=== PATIENT | female | born 1945 | race Caucasian/White ===

== ENCOUNTER → 2016-04-03 | Outpatient (CLI) | payer MEDICARE ==
--- NOTE | 2016-04-04 06:51 | WWHP ---
DATE OF SERVICE: 04/03/2016 CHIEF COMPLAINT: The patient is here for her routine gynecologic exam and mammogram. HPI: This is a 70-year-old, G2, P2 with an LMP of 1994. The patient states it has been about 15 years since her last pelvic exam. She states she was hospitalized about 6 weeks ago for a bad UTI. She has also been experiencing intermittent low abdominal pain on the right side for about 4 months. The pain tends to originate near the umbilicus and seems to radiate to the right lower quadrant. She describes it as a crampy type pain and does seem to notice something every day, but it is intermittent. Most of the day she is not having much pain. She rates the pain at the 1 to 2 out of 10 at this time. She states that it was up to 10 out of 10 when she had a bad UTI. Occasionally, it will get up to 7 out of 10. She denies vaginal discharge, but has had some vulvar pruritus for several weeks. She denies any postmenopausal bleeding. Her primary care physician, Dr. Salamanca, has treated her with a cream for the vulvar pruritus. She believes the cream name starts with a C, but is uncertain of the actual name. PAST MEDICAL HISTORY: Elevated cholesterol, chronic hypertension, and hypothyroidism. Dr. Salamanca is her primary care physician. MEDICATIONS: 1. Atorvastatin 10 mg daily. 2. Amlodipine with benazepril 5/10 one daily. 3. Levothyroxine 125 mcg daily. Allergies to SULFATE medications, which caused nausea and vomiting. PAST SURGICAL HISTORY: Abdominal hernia repair on the right side in 2008, appendectomy at age 18, tubal ligation at age 28, tonsillectomy at age 18, colonoscopy approximately 2006, back surgery in her 30s, elbow and ankle surgeries in the past. PAST OB HISTORY: Vaginal deliveries x2. 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 SOCIAL HISTORY: She denies tobacco and drug use and has 0 to 2 alcoholic drinks per year. She is and has not been sexually active or seeing anybody for many years. 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 FAMILY HISTORY: Mother had CHF and daughter has diabetes. REVIEW OF SYSTEMS: She denies respiratory, cardiac, or GI problems. She denies maltreatment or falling. : She has had some urinary frequency after her hospitalization for UTI. She has had urine tests since then which were apparently negative for urinary tract infection. PHYSICAL EXAM: Blood pressure 151/73. Height 5 feet 6 inches. Weight 259 pounds. Temperature 96.6, pulse 71. This a well-developed, heavyset white female who is alert and oriented x3 in no acute distress. HEENT is within normal limits. NECK: Supple without mass or thyromegaly. CHEST AND LUNGS: Clear to auscultation. HEART: Regular rate and rhythm. Breasts are without mass or discharge. There is slight erythema at the periphery of the areola on both sides. The patient states she has noticed a slight irritating rash in this vicinity and she has used Gold Allan cream which seems to have helped. There is no excoriation. Axillary exam is negative for adenopathy. BACK: Negative for CVA tenderness. ABDOMEN: Mildly obese, soft and there is mild right lower quadrant tenderness without rebound. There is no other tenderness noted. PELVIC EXAM: External genitalia reveals generalized vulvar, perineal and some perianal pallor consistent with lichen sclerosus. There are no focal lesions and this is non-excoriated. Cervix and vagina reveal mild to moderate atrophy without lesions. There is no unusual discharge. There is no cervical motion tenderness. The uterus is midposition, nongravid size and nontender. There are no palpable adnexal masses; however, there is mild right lower quadrant abdominal and pelvic tenderness with deep bimanual palpation. Bimanual examination limited to the pelvic area is minimally tender. Rectovaginal exam is negative for mass or tenderness and is negative for occult blood. EXTREMITIES: Nontender. IMPRESSION: 1. A 70-year-old menopausal female with four-month history of right lower quadrant pain. This is intermittent and at this time I feel it is most likely non-gynecologic because the tenderness seems to be higher than the uterine and adnexal areas. Differential diagnosis will include ovarian mass, which is not palpable, gastrointestinal pain, pelvic and abdominal adhesions or possible recurrence of hernia symptoms since this was where her abdominal hernia repair was. 2. 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 PLAN: 1. Pap smear was performed. 2. Self breast examination was discussed. 3. Mammogram will be done today. 4. The patient will be scheduled for a pelvic ultrasound to further evaluate her right lower quadrant pain to rule out gynecologic problems. 5. The patient will let me know the name of her cream that she has been using on the vulva. She believes it may be clobetasol but is not positive of this. We will consider using clobetasol if she is using something different. She was advised to not over wash the area and try to avoid scratching and rubbing the area. We will also consider a vulvar biopsy if her symptoms are not improving. 6. The patient will use [id number] Cortaid 10 to the areas around the nipples that have been irritated. She will also let me know if this is not improving. 7. She will return in one year and p.r.n.
--- NOTE | 2016-04-04 13:55 | MM ---
Reason for exam: screening (asymptomatic). History: Patient is postmenopausal. Physical Findings: A clinical breast exam by your physician is recommended on an annual basis and results should be correlated with mammographic findings. MG Screening Mammo w CAD Bilateral CC and MLO view(s) were taken. No prior studies available for comparison. There are scattered fibroglandular densities. There is no discrete abnormality. Global asymmetry upper outer quadrant right breast. ASSESSMENT: Negative, BI-RAD 1 RECOMMENDATION: Routine screening mammogram of both breasts in 1 year.
--- NOTE | 2016-04-10 11:46 | WWPLE ---
April 10, 2016 PAMELA SALAMANCA MD RE: Katalina Carvalho Dear Dr. Salamanca: I had the pleasure of seeing your patient Katalina Carvalho in the office on 04/03/16. As you know she is a 70-year-old who presented to me for her routine gynecologic exam. She was experiencing some right lower quadrant abdominal pain for about 4 months. It had gotten much worse at the time of a bad urinary tract infection, which she was hospitalized for several weeks ago. She has also been experiencing chronic vulvar pruritus and has been using a cream for this. This cream was clotrimazole with betamethasone. On examination, I do feel that her pain seems to be superior to her gynecologic organs. I also believes she has lichen sclerosus of the vulva. Pap smear was negative and her mammogram was benign. The patient will be doing a pelvic ultrasound in the near future to rule out gynecologic problems. I have also called in a prescription for Temovate cream, which she will use on the vulva. I will also be seeing her in about one month for re-evaluation of the vulvar irritation. Thank you for allowing me to participate in the care of your patient. Please do not hesitate to call if you have any questions. Sincerely, ELIZABETH GUPTA MD [facility]
== END | disposition home or self-care (01) ==
LOC: WWCWWP 09:02
PROVIDERS: ATTEND Obstetrics & Gynecology
DX: Z12.31 Encounter for screening mammogram for malignant neoplasm of breast (principal)

== ENCOUNTER → 2016-04-15 | Outpatient (CLI) | payer MEDICARE ==
--- NOTE | 2016-04-15 15:19 | US ---
EXAMINATION TYPE: US pelvis complete transvag DATE OF EXAM: 04/15/2016 9:50 AM COMPARISON: NONE CLINICAL History: pelvic pain TECHNIQUE: TA and TV supplemental ,TV imaging added to supplement TA exam yes Date of LMP: years ago pt is age 70 EXAM MEASUREMENTS: Uterus: 5.2 x 2.6 x 3.3 cm Endometrial Stripe: 0.4 cm Right Ovary: not seen Left Ovary: not seen FINDINGS: TECHNOLOGIST IMPRESSION: 1. Uterus: nabothian cyst 0.6 x 0.4 x 0.2 cm, small posterior fibroid 0.8 x 0.5 x 1.0 cm 2. Endometrium: thick for post menopausal upper area heterogenous 2.0 x 0.8 cm. Endometrial echotextu re is abnormal. 3. Right Ovary: not seen 4. Left Ovary: not seen 5. Bilateral Adnexa: wnl 6. Posterior cul-de-sac: wnl IMPRESSION: 1. Borderline Thickened endometrium. 2. Uterine fibroid
== END | disposition home or self-care (01) ==
LOC: RADUSWWP 09:25
PROVIDERS: ATTEND Obstetrics & Gynecology
DX: D25.9 Leiomyoma of uterus, unspecified (principal); R93.8 Abnormal findings on diagnostic imaging of other specified body structures
CPT/HCPCS: 76830; 76856

== ENCOUNTER → 2016-06-25 | Outpatient (CLI) | payer MEDICARE ==
--- NOTE | 2016-06-25 19:42 | WWPN ---
DATE OF DICTATION: 06/25/2016 CHIEF COMPLAINT: The patient is here for followup on her vulvar irritation and treatment. HISTORY OF PRESENT ILLNESS: This is a 71-year-old G2, P2 with an LMP of 1994. The patient was seen on 04/03/16 and was experiencing chronic vulvar irritation. The findings were consistent with probable lichen sclerosus of the vulva. She was prescribed Trimovate cream, which she used b.i.d. with significant improvement. Now she has been using the cream p.r.n. and sometimes uses it up to 3 times per week. The patient also had a pelvic ultrasound which showed an irregularity and an ill-defined area in the endometrium. I have recommended hysteroscopy with D&C, which she was declining and continues to decline at this time. She denies any postmenopausal bleeding. PHYSICAL EXAM: Blood pressure 145/72. Height 5 feet 6 inches. Weight 258 pounds. Temperature 97.9, pulse 62. This is a well-developed, heavyset white female who is alert and oriented x3, in no acute distress. External genitalia reveal mild erythema in the vulva, perineal and perianal areas. There is very slight pallor in this area. The area is fairly well demarcated. There is no excoriation and no suspicious focal lesions. IMPRESSION: 1. A 70-year-old menopausal female with suspected lichen sclerosus of the vulva which symptomatically improved with Trimovate cream. 2. History of some borderline endometrial thickening and irregularity by ultrasound. The patient is refusing hysteroscopy and D&C as recommended. PLAN: 1. The patient will be changed to Kenalog 0.1% cream, which she will use b.i.d. p.r.n. to the vulva and perianal areas. She will also try to not overwash in the area. She will also use a small amount of petroleum jelly as a protective layer for the skin daily. 2. Because the patient is refusing hysteroscopy and D&C, we will plan on repeating the pelvic ultrasound in August or September of this year. An order slip was given to the patient for this. She will return in one year and p.r.n. I have stressed the importance of letting me know if she has any vaginal bleeding. Total time spent with the patient 15 minutes.
== END | disposition home or self-care (01) ==
LOC: WWCWWP 09:54
PROVIDERS: ATTEND Obstetrics & Gynecology

== ENCOUNTER → 2016-09-11 | Outpatient (CLI) | payer MEDICARE ==
[2016-09-11 11:24] LABS: Blood Urea Nitrogen 16 mg/dL (7-17); Non-African American GFR(MDRD) >60 (>60 ml/min/1.73 sqM)
== END | disposition home or self-care (01) ==
LOC: LABWHC1 10:05
PROVIDERS: ATTEND Obstetrics & Gynecology
DX: R10.31 Right lower quadrant pain (principal)
CPT/HCPCS: 36415; 82565; 84520

== ENCOUNTER → 2016-09-17 | Outpatient (CLI) | payer MEDICARE ==
--- NOTE | 2016-09-17 09:59 | CT ---
EXAMINATION TYPE: CT abdomen pelvis w con DATE OF EXAM: 09/17/2016 COMPARISON: NONE HISTORY: RLQ abdominal pian CT DLP: 2669.20 mGycm Automated exposure control for dose reduction was used. TECHNIQUE: Helical acquisition of images from the lung bases through the pelvis have been completed. CONTRAST: Performed with Oral Contrast and with IV Contrast, patient injected with 100 ml mL of Omnipaque 300. FINDINGS: There are coronary artery calcifications present. LUNG BASES: Scattered emphysematous changes are suspected, possible pneumatoceles, there is some mini mal dependent atelectatic change. AORTA: No significant abnormality is appreciated. LIVER/GB: No significant abnormality is appreciated. PANCREAS: No significant abnormality is seen. SPLEEN: No significant abnormality is seen. ADRENALS: No significant abnormality is seen. KIDNEYS: Cortical cysts are present within the bilateral kidneys, the largest on the left measures ap proximately 2.9 cm, it is exophytic anteriorly midpole. At the lower pole of the right kidney in exop hytic cyst is present laterally measuring 18 mm, additional cortical cyst at the lower pole measures 18 mm. Parapelvic cysts are present bilaterally. No renal calculi or ureteral calculi evident. REPRODUCTIVE ORGANS: No significant abnormality is seen BOWEL: Extensive diverticular change present within the sigmoid colon. No bowel obstruction. Colonic interposition present at the level of the lateral aspect of the right lobe liver. Gastroesophageal j unction shows questionable thickening. Appendix is not seen. FREE AIR: No Free Air visible. ASCITES: None visible. PELVIC ADENOPATHY: None visualized. RETROPERITONEAL ADENOPATHY: No Retroperitoneal Adenopathy visible. URINARY BLADDER: No significant abnormality is seen. OSSEOUS STRUCTURES: There is a spinal curvature. Degenerative disc changes are present in the visual ized spine. Old fractures of the pubic rami appear healed. IMPRESSION: DIVERTICULOSIS. POSTOP CHANGES. ADDITIONAL NONSPECIFIC FINDINGS DESCRIBED ABOVE.
== END | disposition home or self-care (01) ==
LOC: RADCTMAIN 07:37
PROVIDERS: ATTEND Obstetrics & Gynecology
DX: K57.90 Diverticulosis of intestine, part unspecified, without perforation or abscess without bleeding (principal); Z98.890 Other specified postprocedural states
CPT/HCPCS: 74177; Q9967

== ENCOUNTER → 2017-08-26 | Outpatient (CLI) | payer MEDICARE ==
[2017-08-26 12:15] VITALS: BP 146/82; PULSE 66; TEMP 98.3; BMI 42.9
--- NOTE | 2017-08-26 12:31 | P.HPOB ---
History of Present Illness H&P Date: 08/26/17 Chief Complaint: The patient is here for her routine gynecologic exam. This is a 72-year-old G-tube P2 with an LMP of 1994. The patient has been using triamcinolone cream infrequently for vulvar irritation. She states one tube can last for 6 months. She is otherwise without gynecologic complaints and denies any postmenopausal bleeding. She had an ultrasound of the pelvis on 04/15/2016 which showed in ill-defined endometrium with borderline thickening. She refused hysteroscopy with D&C. She has not done a repeat pelvic ultrasound as recommended. Review of Systems She has gained 7 pounds over the last year. She denies respiratory, cardiac and G.I. problems. She denies maltreatment or problems with falling. : she denies any significant problems with urinary leakage. Past Medical History Past Medical History: Hyperlipidemia, Hypertension, Osteoarthritis (OA), Thyroid Disorder (Hypothyroid. 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 She was found to have an irregular endometrium by ultrasound in 2017. History of Any Multi-Drug Resistant Organisms: None Reported Past Surgical History: Appendectomy, Back Surgery, Hernia Repair, Hysterectomy, Joint Replacement, Orthopedic Surgery, Tonsillectomy Additional Past Surgical History / Comment(s): 06/26/15 total R knee arthroplasty. Other surgical hx: orif rt ankle, rt elbow replacement, bilat cataracts, colonoscopy 2006, Past Anesthesia/Blood Transfusion Reactions: Previous Problems w/ Anesthesia, Motion Sickness, Postoperative Nausea & Vomiting (PONV) Past Psychological History: No Psychological Hx Reported Additional Psychological History / Comment(s): Pt lives alone. She uses a cane to ambulate. She drives. She has a dog. Smoking Status: Unknown if ever smoked Past Alcohol Use History: None Reported Past Drug Use History: None Reported Additional History: She is and is not sexually active. 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 - Past Family History Mother Family Medical History: Coronary Artery Disease (CAD), Myocardial Infarction ([place] ) Additional Family Medical History / Comment(s): Mother at age 83 yrs of heart problem. Father Family Medical History: No Reported History Additional Family Medical History / Comment(s): Father in a MVA at the age of 55 yrs. Medications and Allergies Home Medications Medication Instructions Recorded Confirmed Type Acetaminophen Tab [Tylenol Tab] 1,000 mg PO BID PRN 06/22/15 08/26/17 History Atorvastatin Calcium [Lipitor] 10 mg PO HS 06/22/15 08/26/17 History Cholecalciferol [Vitamin D3] 8,000 unit PO DAILY 06/22/15 08/26/17 History Cranberry Tab(4200 Mg) 4,200 mg PO DAILY 06/22/15 08/26/17 History Levothyroxine Sodium [Synthroid] 125 mcg PO DAILY 06/22/15 08/26/17 History amLODIPine BESYLATE/BENAZEPRIL 1 cap PO DAILY 06/22/15 08/26/17 History [Lotrel 5-10 mg Capsule] Glucosamine Sulfate 1,500 mg PO DAILY 08/26/17 08/26/17 History Allergies Allergy/AdvReac Type Severity Reaction Status Date / Time Sulfa (Sulfonamide Allergy Anaphylaxis Verified 08/26/17 11:58 Antibiotics) Exam - Vital Signs Vital signs: Vital Signs Temp Pulse BP 08/26/17 11:59 98.3 F 66 146/82 Intake and Output 08/25/17 08/26/17 08/26/17 22:59 06:59 14:59 Other: Weight 120.656 kg Height 5'6", BMI 42.9. This is a well-developed well-nourished obese white female who is alert and oriented times 3 in no acute distress. HEENT: Within normal limits. NECK: Supple without mass or thyromegaly. CHEST AND LUNGS: Clear to auscultation. HEART: Regular rate and rhythm. BREASTS: Are without mass or discharge. AXILLARY EXAM: Negative for adenopathy. BACK: Negative for CVA tenderness. ABDOMEN: Soft, obese, nontender, without palpable masses. PELVIC EXAM: external genitalia reveals generalized Palor with mild erythema going from the vulva to the perineal and perianal areas. This is consistent with mild lichen sclerosis and is consistent with her previous exam.. Cervix and vagina appear normal with mild to moderate atrophy. There is no unusual discharge. There is no evidence of prolapse. The uterus is midposition, nongravid size and nontender. There are no palpable adnexal masses or tenderness. Bimanual examination is somewhat limited secondary to her size. RECTAL EXAM: vaginal exam is negative for mass or tenderness and is negative for occult blood. EXTREMITIES: Nontender. IMPRESSION: 1. 72-year-old menopausal female with probable lichen sclerosis of the vulva symptomatically improved with triamcinolone cream. 2. History of endometrial irregularity with borderline thickening by pelvic ultrasound done last year with no postmenopausal bleeding. PLAN: 1. Pap smear was deferred since she had normal in last year. 2. Breast awareness was discussed. 3. Screening mammogram is due and and an order slip was given to the patient for this. 4. Since the patient is declining hysteroscopy, I have recommended repeating the pelvic ultrasound. She states she will schedule this. An order slip was given to the patient for this. 5. An electronic prescription for triamcinolone cream 0.1% will be sent to [facility] pharmacy in [place]. 6. I have recommended screening colonoscopy since it has been 11 years since her last one. She will do this through her primary care physician. 7. She does get flu shots every fall. 8. She will return in one year.
== END | disposition home or self-care (01) ==
LOC: WWCWWP 10:45
PROVIDERS: ATTEND Obstetrics & Gynecology
DX: Z53.9 Procedure and treatment not carried out, unspecified reason (principal)

== ENCOUNTER → 2020-07-12 | Outpatient (CLI) | payer MEDICARE ==
--- NOTE | 2020-07-13 07:48 | CT ---
EXAMINATION TYPE: CT abdomen pelvis w con DATE OF EXAM: 07/12/2020 HISTORY: RLQ pain, constipation, right lower quadrant hernia repair surgery 15 years ago, and bloody stool all per border. CT DLP: 3452mGycm Automated Exposure Control for Dose Reduction was Utilized. CONTRAST: CT scan of the abdomen and pelvis is performed with oral and with IV Contrast, patient injected with 100 mL of Isovue 300. COMPARISON: CT September 17, 2016 FINDINGS: Exam is suboptimal as there is some artifact related to patient's large body habitus. LUNG BASES: Calcification level of the aortic valve. There is at least mild to moderate coronary victoria ry calcification present. LIVER/GB: Contracted gallbladder on current study. PANCREAS: No significant abnormality is seen. SPLEEN: No significant abnormality is seen. ADRENALS: No significant abnormality is seen. KIDNEYS: Cortical thinning in both kidneys with scattered simple-appearing thin-walled cysts bilatera lly. Some lesions too small to further characterize. Symmetric cortical medullary uptake and excretio n without hydronephrosis. Some simple appearing benign parapelvic cysts are noted centrally in both k idneys.. BOWEL: Slight high positioning of cecum. Oral contrast reaches level of the cecum. No suspicious smal l or large bowel dilatation. Somewhat redundant sigmoid colon. Diverticular disease in the left and s igmoid colon. No acute diverticulitis. Mild fecal prominence in the right and transverse colon. UTERUS/ADNEXA: Anteverted uterus. Scattered bilateral pelvic phleboliths. No suspicious enlarged ovar nasima or adnexal masses. LYMPH NODES: No greater than 1cm abdominal or pelvic lymph nodes are appreciated. OSSEOUS STRUCTURES: Old healed fracture deformities of the bilateral inferior and superior pelvic rip i. Levoconvex scoliosis centered at L1 level. Mild chronic compression type fracture T12 level. Strai ghtening of spine on sagittal images. Severe disc space narrowing L4-L5 and L5-S1 levels. OTHER: Mild calcified plaque of the aorta extends into branch vessels. IMPRESSION: Mild proximal to mid colonic fecal stasis. No bowel obstruction. No acute findings are ev ident. Distal colonic diverticulosis redemonstrated.
== END | disposition home or self-care (01) ==
LOC: RADCTMAIN 14:50
PROVIDERS: ATTEND Nurse Practitioner Family
DX: K57.30 Diverticulosis of large intestine without perforation or abscess without bleeding (principal); K59.89 Other specified functional intestinal disorders
CPT/HCPCS: 74177; Q9967

== ENCOUNTER → 2020-08-01 | Outpatient (CLI) | payer MEDICARE | END | disposition home or self-care (01) | LOC: RADUSWWP 13:47 | PROVIDERS: ATTEND Family Medicine | DX: Z53.9 Procedure and treatment not carried out, unspecified reason (principal) ==

== ENCOUNTER 2021-03-09 17:46 | Inpatient (IN) | payer MEDICARE ==
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
[2021-03-09] MEDS ORDERED: SODIUM CHLORIDE 0.9% 500 ML 500 ML IV STA (18:02)
[2021-03-09 18:28] LABS: Albumin 4.1 g/dL (3.5-5.0); Calcium 9.4 mg/dL (8.4-10.2); Magnesium 2.2 mg/dL (1.6-2.3); Potassium 4.3 mmol/L (3.5-5.1); Total Bilirubin 0.8 mg/dL (0.2-1.3); Total Protein 7.5 g/dL (6.3-8.2)
--- NOTE | 2021-03-09 18:44 | XR ---
EXAMINATION TYPE: XR chest 1V portable DATE OF EXAM: 03/09/2021 COMPARISON: 06/27/2015 HISTORY: Short of breath TECHNIQUE: Single view FINDINGS: There is no heart failure nor confluent pneumonic infiltrate. Costophrenic angles are clear . There are calcified granulomata at the pulmonary ander. There are chest leads. There is some calcifi ed granulomata at the pulmonary ander. IMPRESSION: No active cardiopulmonary disease. Old granulomatous disease. No change.
[2021-03-09] MEDS ORDERED: HEPARIN SODIUM 1,000 UN/ML (10ML VL) IV PRN ×2 (18:45→18:56)
[2021-03-09] MEDS ORDERED: HEPARIN SODIUM 1,000 UN/ML (10ML VL) IV ONE ×2 (18:45→19:00)
[2021-03-09 18:49] LABS: INR 0.9 (<1.2); Partial Thromboplastin Time 20.6 sec (22.0-30.0); Prothrombin Time 9.8 sec (9.0-12.0)
[2021-03-09] MEDS ORDERED: HEPARIN SOD,PORK IN 0.45% NACL 25,000 UNIT in 0.45% NACL 1 250ML.BAG IV SCH (19:00)
--- NOTE | 2021-03-09 19:34 | CT ---
EXAMINATION TYPE: CT angio chest DATE OF EXAM: 03/09/2021 COMPARISON: None HISTORY: SOB CT DLP: 724.3 mGycm Automated exposure control for dose reduction was used. CONTRAST: Performed with IV Contrast, patient injected with 87cc mL of Isovue 370. Images obtained from the thoracic inlet to the diaphragm with IV contrast. There are 3-D post process ed images. There is no mediastinal adenopathy. There is enlarged 3 cm subcarinal lymph node. Thoracic aorta is i ntact. There is no aneurysm or dissection. Heart size is fairly normal. There is no pericardial effus ion. There is mild subsegmental atelectasis at the lung bases. There is no pleural effusion. There are large filling defects in the lower lobe pulmonary arteries bilaterally. There are filling d efects also extending into the upper lobe pulmonary arteries bilaterally. There is normal alignment of the thoracic vertebra. There is 25% compression fracture of T12. The liane rnum appears intact. IMPRESSION: Multiple large upper and lower lobe pulmonary emboli bilaterally. Some of this could be chronic embol i with some recanalization of the channels. There is some mild fibrotic changes and subsegmental atel ectasis at the lung bases. Old T12 mild compression fractures stable compared to 07/12/2020 exam. Exam was discussed with emergency room attending staff at 7:30 PM.
[2021-03-09] MEDS: HEPARIN SOD,PORK IN 0.45% NACL 25,000 UNIT in 0.45% NACL 1 250ML.BAG IV SCH (19:37)
[2021-03-09] MEDS ORDERED: NALOXONE 0.4 MG/ML 1 ML VIAL IV PRN (19:39)
[2021-03-09] MEDS ORDERED: oxyCODONE-APAP 7.5-325MG 1 EACH TAB PO STA (19:49)
[2021-03-09 20:28] LABS: Basophils % (A) 0 %; Eosinophils # (A) 0.1 k/uL (0-0.7); Eosinophils % (A) 1 %; HGB 13.6 gm/dL (11.4-16.0); Lymphocytes # (A) 1.3 k/uL (1.0-4.8); Lymphocytes % (A) 13 %; MCH 28.3 pg (25.0-35.0); MCHC 31.6 g/dL (31.0-37.0); MCV 89.3 fL (80.0-100.0); Mean Platelet Volume 8.9; Monocytes # (A) 0.6 k/uL (0-1.0); Monocytes % (A) 6 %; Neutrophils # (A) 7.9 k/uL (1.3-7.7); Neutrophils % (A) 79 %; Platelet Count 186 k/uL (150-450); RBC 4.81 m/uL (3.80-5.40); RDW 13.4 % (11.5-15.5)
[2021-03-09] MEDS: ACETAMINOPHEN TAB 500 MG TAB PO PRN (20:46)
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
--- NOTE | 2021-03-09 21:10 | US ---
EXAMINATION TYPE: US venous doppler duplex LE DATE OF EXAM: 03/09/2021 9:02 PM COMPARISON: NONE CLINICAL HISTORY: dvt. Right leg swelling, PE's tonight, 300lb pt with painful legs and laboured misti thing SIDE PERFORMED: Bilateral TECHNIQUE: The lower extremity deep venous system is examined utilizing real time linear array sonog juli with graded compression, doppler sonography and color-flow sonography. VESSELS IMAGED: Common Femoral Vein Deep Femoral Vein Greater Saphenous Vein * Femoral Vein Popliteal Vein Small Saphenous Vein * Proximal Calf Veins (* superficial vessels) Study was limited on compression images due to patients pain tolerance and difficulty in breathing Right Leg: internal echoes that were not compressible seen at the level of mid popiteal vein down th rough proximal calf veins, positive for DVT Left Leg: Good color flow seen throughout left leg, negative for DVT IMPRESSION: There is evidence of acute deep vein thrombosis in the right leg involving the popliteal and calf veins. There is no evidence of deep vein thrombosis in the left leg.
[2021-03-09] MEDS: ATORVASTATIN 10 MG TAB PO SCH (22:45)
[2021-03-10] MEDS: ACETAMINOPHEN TAB 500 MG TAB PO PRN ×3 (01:51→15:58)
[2021-03-10] MEDS: NITROGLYCERIN SL TABS 0.4 MG TAB SUBLINGUAL STA ×2 (03:48→05:04)
[2021-03-10] MEDS: LEVOTHYROXINE 125 MCG TAB PO SCH (05:04)
[2021-03-10] MEDS: SODIUM CHLORIDE 0.9% 1,000 ML IV SCH ×3 (05:23→23:53)
[2021-03-10] MEDS: amLODIPine 5 MG TAB PO SCH (07:55)
[2021-03-10] MEDS: HEPARIN SOD,PORK IN 0.45% NACL 25,000 UNIT in 0.45% NACL 1 250ML.BAG IV SCH ×3 (10:15→20:31)
[2021-03-10 11:15] LABS: HCT 37.2 % (34.0-46.0); HGB 12.5 gm/dL (11.4-16.0); MCH 29.8 pg (25.0-35.0); MCHC 33.4 g/dL (31.0-37.0); Mean Platelet Volume 8.7; Platelet Count 208 k/uL (150-450); RBC 4.18 m/uL (3.80-5.40); RDW 14.1 % (11.5-15.5); WBC 8.2 k/uL (3.8-10.6)
[2021-03-10 11:48] LABS: Calcium 9.4 mg/dL (8.4-10.2); Potassium 3.7 mmol/L (3.5-5.1)
--- NOTE | 2021-03-10 11:50 | P.PN ---
Subjective Progress Note Date: 03/10/21 Pt still with dyspnea on exertion. Appears to be comfortable at rest. O2 requirement down to 3L from 4L. Pending vascular surgery consult Objective - Vital Signs Vital signs: Vital Signs Temp 97.1 F L 03/10/21 08:00 Pulse 78 03/10/21 08:00 Resp 20 03/10/21 08:00 BP 123/68 03/10/21 08:00 Pulse Ox 97 03/10/21 08:00 Intake & Output 03/09/21 03/10/21 03/10/21 18:59 06:59 18:59 Intake Total 162.895 327.105 Output Total 400 Balance 162.895 -72.895 Weight 136.078 kg Intake: Intake, IV Titration 162.895 87.105 Amount Heparin Sod,Pork in 0.45% 162.895 87.105 NaCl 25,000 unit In 0.45 % NaCl 1 250ml.bag @ 16.9 UNITS/KG/HR 22.997 mls/ hr IV .[id number] [facility] Rx#: [id number] Oral 240 Output: Urine 400 - Exam Gen: awake, alert HEENT: normocephalic, atraumatic, good hearing acuity, moist mucous membranes Resp: good air exchange, breathing comfortably with no accessory muscle use CVS: good distal perfusion x 4, tachycardic, regular GI: soft, NTTP, ND : no SPT, no CVAT, chan catheter not present MSK: right pitting edema, no clubbing Neuro: non-focal, moving all extremities Psych: cooperative, euthymic mood - Labs CBC & Chem 7: 03/10/21 10:36 03/10/21 10:36 Labs: Abnormal Lab Results - Last 24 Hours (Table) 03/09/21 03/09/21 03/09/21 Range/Units 18:10 18:10 18:10 Neutrophils # 7.9 H (1.3-7.7) k/uL APTT 20.6 L (22.0-30.0) sec D-Dimer 8.56 H (<0.60) mg/L FEU Glucose 128 H (74-99) mg/dL Troponin I (0.000-0.034) ng/mL 03/09/21 03/10/21 03/10/21 Range/Units 18:10 01:40 10:36 Neutrophils # (1.3-7.7) k/uL APTT 138.7 H* 82.9 H (22.0-30.0) sec D-Dimer (<0.60) mg/L FEU Glucose (74-99) mg/dL Troponin I 0.167 H* (0.000-0.034) ng/mL 03/10/21 Range/Units 10:36 Neutrophils # (1.3-7.7) k/uL APTT (22.0-30.0) sec D-Dimer (<0.60) mg/L FEU Glucose 123 H (74-99) mg/dL Troponin I (0.000-0.034) ng/mL Assessment and Plan Assessment: Bilateral PE -Follow-up lower extremity Doppler was negative -Vascular surgery consulted -Continue with heparin infusion -Monitor CBC daily -Supplemental oxygen -Echocardiogram ordered Troponin elevation, suspected secondary to bilateral PE -Cardiac monitoring -Trend for now Chronic conditions: Hypertension, hyperlipidemia, hypothyroid -Continue with home meds DVT prophylaxis -Heparin infusion CODE STATUS:Full Code Discussed with: Patient, daughter (also confirmed history of blood clots in the family) Anticipated discharge date: 2-[address]: Home
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
--- NOTE | 2021-03-10 14:51 | ECHOF ---
Referral Reason:PE MEASUREMENTS -------- HEIGHT: 157.5 cm WEIGHT: 136.1 kg BP: 154/80 RVIDd: 4.1 cm (< 3.3) IVSd: 1.4 cm (0.6 - 1.1) LVIDd: 3.5 cm (3.9 - 5.3) LVPWd: 1.4 cm (0.6 - 1.1) IVSs: 2.1 cm LVIDs: 2.2 cm LVPWs: 1.8 cm LA Diam: 3.7 cm (2.7 - 3.8) LAESV Index (A-L): 19.98 ml/m Ao Diam: 3.1 cm (2.0 - 3.7) AV Cusp: 1.5 cm (1.5 - 2.6) MV EXCURSION: 12.169 mm (> 18.000) MV EF SLOPE: 34 mm/s (70 - 150) EPSS: 0.4 cm MV E Oscar: 0.67 m/s MV DecT: 301 ms MV A Oscar: 0.94 m/s MV E/A Ratio: 0.71 AV maxP.13 mmHg AV meanP.03 mmHg RAP: 5.00 mmHg RVSP: 49.01 mmHg FINDINGS -------- Sinus rhythm. This was a technically adequate study. The left ventricular size is normal. There is moderate concentric left ventricular hypertrophy. O verall left ventricular systolic function is normal with, an EF between 55 - 60 %. The right ventricle is moderately enlarged. Normal LA size by volume 22+/-6 ml/m2. The right atrium is normal in size. Interatrial and interventricular septum intact. There is mild aortic valve sclerosis. There is mild aortic stenosis present. Peak/mean gradient a cross the Aortic Valve is 22.13mmHg / 11.03mmHg. Mild mitral annular calcification present. Myja-et-zajrltol tricuspid regurgitation present. There is moderate pulmonary hypertension. The r ight ventricular systolic pressure, as measured by Doppler, is 49.01mmHg. The pulmonic valve was not well visualized. The aortic root size is normal. Normal inferior vena cava with normal inspiratory collapse consistent with estimated right atrial pre ssure of 5 mmHg. There is no pericardial effusion. CONCLUSIONS -------- 1. The left ventricular size is normal. 2. There is moderate concentric left ventricular hypertrophy. 3. Overall left ventricular systolic function is normal with, an EF between 55 - 60 %. 4. The right ventricle is moderately enlarged. 5. There is mild aortic valve sclerosis. 6. There is mild aortic stenosis present. 7. Peak/mean gradient across the Aortic Valve is 22.13mmHg / 11.03mmHg. 8. Qiut-mj-qacrewvq tricuspid regurgitation present. 9. There is moderate pulmonary hypertension. 10. The right ventricular systolic pressure, as measured by Doppler, is 49.01mmHg. 11. There is no pericardial effusion. POCKET SECRETARY ASSEMBLER: Patty Corea RDCS
[2021-03-10] MEDS: ATORVASTATIN 10 MG TAB PO SCH (20:31)
[2021-03-10] MEDS ORDERED: DOCUSATE 100 MG CAP PO STA (21:37)
[2021-03-11] MEDS ORDERED: ONDANSETRON 4 MG/2 ML VIAL IM STA (00:10)
[2021-03-11] MEDS: ACETAMINOPHEN TAB 500 MG TAB PO PRN ×2 (00:27→20:39)
[2021-03-11] MEDS: LEVOTHYROXINE 125 MCG TAB PO SCH (06:37)
[2021-03-11] MEDS: amLODIPine 5 MG TAB PO SCH (09:04)
--- NOTE | 2021-03-11 09:35 | P.PN ---
Subjective Progress Note Date: 03/11/21 Patient seen and examined. Overall she states she is feeling much better today. She denies any dyspnea with slight exertion like yesterday. She is able to maintain her conversation. Objective - Vital Signs Vital signs: Vital Signs Temp 97.9 F 03/10/21 20:00 Pulse 79 03/11/21 04:00 Resp 18 03/11/21 04:00 BP 153/72 03/11/21 04:00 Pulse Ox 97 03/11/21 04:00 Intake & Output 03/10/21 03/11/21 03/11/21 18:59 06:59 18:59 Intake Total 252.374 5417.747 Output Total 400 1250 Balance 0.461 82.747 Intake: Intake, IV Titration 160.461 332.747 Amount Heparin Sod,Pork in 0.45% 160.461 332.747 NaCl 25,000 unit In 0.45 % NaCl 1 250ml.bag @ 16.9 UNITS/KG/HR 22.997 mls/ hr IV .[id number] [facility] Rx#: [id number] Oral 240 1000 Output: Urine 400 1250 Other: Voiding Method External Catheter # Voids 1 # Bowel Movements 1 - Exam Gen. a pleasant cooperative obese female in no acute distress. HEENT is cephalic atraumatic extra motion intact. Heart is regular. Lungs with diminis hed breath sounds. Abdomen is obese. Extremity is with 2+ pitting edema bilaterally. On O2 4 L nasal cannula. - Labs CBC & Chem 7: 03/10/21 10:36 03/10/21 10:36 Labs: Abnormal Lab Results - Last 24 Hours (Table) 03/10/21 03/10/21 03/10/21 Range/Units 10:36 10:36 10:36 APTT 82.9 H (22.0-30.0) sec Glucose 123 H (74-99) mg/dL Troponin I 0.067 H* (0.000-0.034) ng/mL 03/10/21 03/11/21 Range/Units 18:59 03:00 APTT 68.4 H 104.4 H* (22.0-30.0) sec Glucose (74-99) mg/dL Troponin I (0.000-0.034) ng/mL Assessment and Plan Assessment: Bilateral pulmonary emboli Right lower extremity DVT Shortness of breath secondary to #1 on oxygen Plan: At this time the patient appears to be maturing better. The imaging is reviewed, she does have pulmonary hypertension was some mild enlargement of her right ventricle. Uncertain was more of a chronic issue versus something acute. She does appear to be significantly improved at this point on oxygen. She is very hesitant about undergoing any further intervention. We discussed that at this point we can monitor her for the next 24 hours to see if she is to continue to improve she may be able to be discharged home on oxygen versus going forward with a procedure to help with her thrombus burden. She is not certain about going forward with any procedure thrombolysis for thrombectomy. All risks and benefits were discussed of each intervention and no intervention. She seemingly understands. I do think at this time it is reasonable to forego procedure if she does not wish to undergo it given her improvement. Continue anticoagulation and oxygen as needed
[2021-03-11] MEDS: HEPARIN SOD,PORK IN 0.45% NACL 25,000 UNIT in 0.45% NACL 1 250ML.BAG IV SCH ×2 (12:08→23:29)
--- NOTE | 2021-03-11 14:13 | P.PN ---
Subjective Progress Note Date: 03/11/21 Patient reports improvement of breathing today. She remains on 3 L nasal cannula. Seen by vascular surgery who are okay with holding off on thrombectomy as per patient's preference. Echocardiogram did demonstrate evidence of right ventricular enlargement and right heart strain. She does also have DVTs in her lower extremities. Likely plan will be to continue heparin, then discharge patient on Apixiban tomorrow. Objective - Vital Signs Vital signs: Vital Signs Temp 97.9 F 03/11/21 12:00 Pulse 72 03/11/21 12:00 Resp 18 03/11/21 12:00 BP 132/63 03/11/21 12:00 Pulse Ox 97 03/11/21 12:00 Intake & Output 03/10/21 03/11/21 03/11/21 18:59 06:59 18:59 Intake Total 160.897 3669.747 340.401 Output Total 400 1250 Balance 0.461 82.747 340.401 Intake: Intake, IV Titration 160.461 332.747 100.401 Amount Heparin Sod,Pork in 0.45% 160.461 332.747 100.401 NaCl 25,000 unit In 0.45 % NaCl 1 250ml.bag @ 16.9 UNITS/KG/HR 22.997 mls/ hr IV .[id number] [facility] Rx#: [id number] Oral 240 1000 240 Output: Urine 400 1250 Other: Voiding Method External Catheter External Catheter # Voids 1 1 # Bowel Movements 1 1 - Exam Gen: awake, alert HEENT: normocephalic, atraumatic, good hearing acuity, moist mucous membranes Resp: good air exchange, breathing comfortably with no accessory muscle use CVS: good distal perfusion x 4, tachycardic, regular GI: soft, NTTP, ND : no SPT, no CVAT, chan catheter not present MSK: right pitting edema, no clubbing Neuro: non-focal, moving all extremities Psych: cooperative, euthymic mood - Labs CBC & Chem 7: 03/10/21 10:36 03/10/21 10:36 Labs: Abnormal Lab Results - Last 24 Hours (Table) 03/10/21 03/11/21 03/11/21 Range/Units 18:59 03:00 11:24 APTT 68.4 H 104.4 H* 58.4 H (22.0-30.0) sec Assessment and Plan Assessment: Bilateral PE -Follow-up lower extremity Doppler was negative -Vascular surgery consulted -Continue with heparin infusion -Monitor CBC daily -Supplemental oxygen -Echocardiogram ordered, with evidence of right ventricular enlargement and right heart strain, severe pulmonary hypertension Chronic conditions: Hypertension, hyperlipidemia, hypothyroid -Continue with home meds DVT prophylaxis -Heparin infusion CODE STATUS:Full Code Discussed with: Patient, daughter (also confirmed history of blood clots in the family) Anticipated discharge date: 2-[address]: Home
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
[2021-03-11] MEDS: SODIUM CHLORIDE 0.9% 1,000 ML IV SCH ×2 (18:45→20:28)
[2021-03-11] MEDS: ATORVASTATIN 10 MG TAB PO SCH (20:29)
[2021-03-12] MEDS ORDERED: hydrALAZINE HCL 25 MG TAB PO STA (05:11)
[2021-03-12] MEDS: LEVOTHYROXINE 125 MCG TAB PO SCH (05:20)
[2021-03-12 07:17] LABS: Basophils % (A) 0 %; Eosinophils # (A) 0.3 k/uL (0-0.7); Eosinophils % (A) 4 %; HCT 40.5 % (34.0-46.0); HGB 12.7 gm/dL (11.4-16.0); Hypochromasia Slight; Lymphocytes # (A) 1.4 k/uL (1.0-4.8); Lymphocytes % (A) 21 %; MCH 28.4 pg (25.0-35.0); MCHC 31.4 g/dL (31.0-37.0); MCV 90.2 fL (80.0-100.0); Mean Platelet Volume 8.4; Monocytes # (A) 0.3 k/uL (0-1.0); Monocytes % (A) 5 %; Neutrophils # (A) 4.4 k/uL (1.3-7.7); Neutrophils % (A) 67 %; Platelet Count 227 k/uL (150-450); RBC 4.49 m/uL (3.80-5.40); RDW 13.9 % (11.5-15.5); WBC 6.6 k/uL (3.8-10.6)
[2021-03-12 08:14] LABS: Calcium 9.3 mg/dL (8.4-10.2); Magnesium 2.2 mg/dL (1.6-2.3)
[2021-03-12] MEDS: amLODIPine 5 MG TAB PO SCH (08:35)
[2021-03-12] MEDS ORDERED: hydrALAZINE HCL 25 MG TAB PO SCH (09:00)
[2021-03-12] MEDS ORDERED: APIXABAN 5 MG TAB PO SCH (09:30)
[2021-03-12] MEDS: ACETAMINOPHEN TAB 500 MG TAB PO PRN (11:57)
[2021-03-12 14:14] VITALS: BP 123/88; PULSE 78; RESP 18; TEMP 98.4
--- NOTE | 2021-03-12 14:14 | P.DS ---
Providers Date of admission: 03/09/21 19:39 Expected date of discharge: 03/12/21 Attending physician: Sugey Canela MD Consults: 03/09/21 19:41 Consult Physician Routine Consulting Provider: Mireille Chan Consult Reason/Comments: PE, evaluate for EKOS Do you want consulting provider notified?: Already Contacted Consult Physician Routine Consulting Provider: Andreea Rhodes Consult Reason/Comments: PE Do you want consulting provider notified?: Already Contacted Primary care physician: Gabriella [facility] Course: Bilateral PE Acute Hypoxemic Respiratory Failure -Patient was admitted for respiratory failure related to bilateral PE on CTA. Follow-up lower extremity Doppler was negative. She was started on a heparin gtt and vascular surgery was consulted for consideration of mechanical thrombectomy. Pulmonology followed along as well. Patient peaked at 4L O2 requirement, which returned to room air. Echo showed evidence of RHS with RVE and pulmonary hypertension. Troponin was elevated but decreased. Patient improved quickly symptomatically by day 2 of admission on heparin gtt. Thrombectomy was deferred. Pt was discharged home without need for oxygen, and will f/u with pulmonology and PCP. Prescribed Eliquis. Hypertension, hyperlipidemia, hypothyroid -Continued with home meds, added hydralazine 25mg PO daily I spent 36 minutes coordinating this discharge. Assessment: Gen: awake, alert HEENT: normocephalic, atraumatic, good hearing acuity, moist mucous membranes Resp: good air exchange, breathing comfortably with no accessory muscle use CVS: good distal perfusion x 4, tachycardic, regular GI: soft, NTTP, ND : no SPT, no CVAT, chan catheter not present MSK: right pitting edema, no clubbing Neuro: non-focal, moving all extremities Psych: cooperative, euthymic mood Patient Condition at Discharge: Good Plan - Discharge Summary Discharge Rx Participant: No New Discharge Prescriptions: New Apixaban [Eliquis Starter Pack (for VTE)] 5 - 10 mg PO DIRECTED 30 Days #1 each hydrALAZINE HCL [Apresoline] 25 mg PO DAILY #30 tab Continue Atorvastatin Calcium [Lipitor] 10 mg PO HS amLODIPine BESYLATE/BENAZEPRIL [Lotrel 5-10 MG] 1 cap PO DAILY Levothyroxine Sodium [Synthroid] 125 mcg PO DAILY Cranberry Tab(4200 Mg) 4,200 mg PO DAILY Glucosamine Sulfate 1,500 mg PO DAILY Cholecalciferol [Vitamin D3 (25 Mcg = 1000 Iu)] 200 mcg PO DAILY Ascorbic Acid [Vitamin C] 1,000 mg PO DAILY Discharge Medication List Atorvastatin Calcium [Lipitor] 10 mg PO HS 06/22/15 [History] Cranberry Tab(4200 Mg) 4,200 mg PO DAILY 06/22/15 [History] Levothyroxine Sodium [Synthroid] 125 mcg PO DAILY 06/22/15 [History] amLODIPine BESYLATE/BENAZEPRIL [Lotrel 5-10 MG] 1 cap PO DAILY 06/22/15 [History] Glucosamine Sulfate 1,500 mg PO DAILY 08/26/17 [History] Ascorbic Acid [Vitamin C] 1,000 mg PO DAILY 03/09/21 [History] Cholecalciferol [Vitamin D3 (25 Mcg = 1000 Iu)] 200 mcg PO DAILY 03/09/21 [History] Apixaban [Eliquis Starter Pack (for VTE)] 5 - 10 mg PO DIRECTED 30 Days #1 each 03/12/21 [Rx] hydrALAZINE HCL [Apresoline] 25 mg PO DAILY #30 tab 03/12/21 [Rx] Follow up Appointment(s)/Referral(s): Abad Dale [NON-STAFF] - Mireille Chan DO [STAFF PHYSICIAN] - As Needed Gabriella Blackwood NPC [STAFF PHYSICIAN] - 1-2 days Discharge Disposition: HOME SELF-CARE
--- NOTE | 2021-03-12 14:21 | P.PN ---
Subjective Progress Note Date: 03/12/21 Patient is seen and examined sitting up in bed. She is on 3 L of nasal cannula with saturations between 95-97%. She states that she continues to feel well. Shortness of breath is improved. She's been getting up and ambulating around the room. She denies any chest pain. Plan is for discharge home today. Objective - Vital Signs Vital signs: Vital Signs Temp 98 F 03/12/21 04:30 Pulse 69 03/12/21 04:30 Resp 18 03/12/21 04:30 BP 171/81 03/12/21 04:51 Pulse Ox 95 03/12/21 04:30 Intake & Output 03/11/21 03/12/21 03/12/21 18:59 06:59 18:59 Intake Total 580.401 411.598 Output Total 500 Balance 580.401 -88.402 Intake: Intake, IV Titration 100.401 171.598 Amount Heparin Sod,Pork in 0.45% 100.401 171.598 NaCl 25,000 unit In 0.45 % NaCl 1 250ml.bag @ 16.9 UNITS/KG/HR 22.997 mls/ hr IV .[id number] [facility] Rx#: [id number] Oral 480 240 Output: Urine 500 Other: Voiding Method External Catheter Bedside Commode External Catheter # Voids 1 1 # Bowel Movements 1 1 - Exam General appearance: The patient is alert, oriented, appears in no acute distress. HET: Head is normocephalic and atraumatic. Neck: Supple without lymphadenopathy. Trachea midline. Heart: S1 S2. Regular rate and rhythm. Lungs: Clear to auscultation. Extremities: Normal skin color and turgor. Neurological: No focal deficits. Alert and oriented 3. - Labs CBC & Chem 7: 03/12/21 06:50 03/12/21 06:50 Labs: Abnormal Lab Results - Last 24 Hours (Table) 03/11/21 03/12/21 03/12/21 Range/Units 11:24 06:50 06:50 APTT 58.4 H 65.8 H (22.0-30.0) sec Glucose 106 H (74-99) mg/dL Assessment and Plan Assessment: 1. Bilateral pulmonary emboli 2. Right lower extremity DVT 3. Shortness of breath secondary to #1 on oxygen Plan: Patient continues to improve with shortness of breath. She is on 3 L of oxygen running 95-97%. There is no plans for any vascular surgical intervention. May transition to Eliquis from heparin. I discussed with patient to follow-up with vascular surgery as needed at the shortness of breath worsens or does not improve. The impression and plan of care has been dictated as directed. Dr. Keys I performed a history and examination of this patient, discussed the same with the dictator. I agree with the dictator's note ,documented as a scribe. Any additional findings or plans will be noted.
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
== END 2021-03-12 17:08 | disposition home or self-care (01) | DRG 175 ==
LOC: EC 17:46 → 3SCARD 19:39
PROVIDERS: ADMIT Internal Medicine; ATTEND Internal Medicine
DX: I26.99 Other pulmonary embolism without acute cor pulmonale (principal); J96.01 Acute respiratory failure with hypoxia; I82.401 Acute embolism and thrombosis of unspecified deep veins of right lower extremity; J98.11 Atelectasis; E03.9 Hypothyroidism, unspecified; E66.9 Obesity, unspecified; Z68.35 Body mass index [BMI] 35.0-35.9, adult; E78.5 Hyperlipidemia, unspecified; I10 Essential (primary) hypertension; I27.20 Pulmonary hypertension, unspecified; I48.91 Unspecified atrial fibrillation; I49.3 Ventricular premature depolarization; Z20.822 Contact with and (suspected) exposure to COVID-19; Z79.890 Hormone replacement therapy; Z79.899 Other long term (current) drug therapy; Z82.49 Family history of ischemic heart disease and other diseases of the circulatory system; Z86.711 Personal history of pulmonary embolism; Z86.718 Personal history of other venous thrombosis and embolism; Z90.710 Acquired absence of both cervix and uterus; Z96.651 Presence of right artificial knee joint; Z88.2 Allergy status to sulfonamides
CPT/HCPCS: 36415; 71045; 71275; 80048; 80053; 83605; 83735; 83880; 84484; 85025; 85027; 85379; 85610; 85730; 87635; 93005; 93306; 93970; 96374; 99291

== ENCOUNTER 2021-03-30 07:08 | Emergency (ER) | payer MEDICARE ==
[2021-03-30 07:34] VITALS: TEMP 98.9
[2021-03-30] MEDS ORDERED: SODIUM CHLORIDE 0.9% 1,000 ML IV STA (07:44)
[2021-03-30 08:08] LABS: Basophils % (A) 0 %; Eosinophils # (A) 0.1 k/uL (0-0.7); Eosinophils % (A) 2 %; HCT 41.5 % (34.0-46.0); HGB 13.2 gm/dL (11.4-16.0); Lymphocytes # (A) 1.1 k/uL (1.0-4.8); Lymphocytes % (A) 15 %; MCH 28.2 pg (25.0-35.0); MCHC 31.8 g/dL (31.0-37.0); MCV 88.8 fL (80.0-100.0); Mean Platelet Volume 8.6; Monocytes # (A) 0.3 k/uL (0-1.0); Monocytes % (A) 5 %; Neutrophils # (A) 5.5 k/uL (1.3-7.7); Neutrophils % (A) 77 %; Platelet Count 250 k/uL (150-450); RBC 4.67 m/uL (3.80-5.40); RDW 13.8 % (11.5-15.5); WBC 7.1 k/uL (3.8-10.6)
--- NOTE | 2021-03-30 08:15 | ED ---
General Adult HPI - General Chief complaint: Dizziness Stated complaint: hypertension, DVT Time Seen by Provider: 03/30/21 07:27 Source: patient, RN notes reviewed Mode of arrival: EMS Limitations: no limitations - History of Present Illness Initial comments: 75-year-old female with a past medical history of hyperlipidemia presents to the emergency room for a chief complaint of high blood pressure. Patient states that last night she started to feel little bit lightheaded and could feel her blood pressure pounding. States she was high so she took her blood pressure medication around 4:30 AM. States she thinks it is starting to work and she is feeling better. Patient has no other complaints at this time including shortness of breath, chest pain, abdominal pain, nausea or vomiting, headache, or visual changes. - Related Data Home Medications Medication Instructions Recorded Confirmed Atorvastatin Calcium [Lipitor] 10 mg PO HS 06/22/15 03/09/21 Cranberry Tab(4200 Mg) 4,200 mg PO DAILY 06/22/15 03/09/21 Levothyroxine Sodium [Synthroid] 125 mcg PO DAILY 06/22/15 03/09/21 amLODIPine BESYLATE/BENAZEPRIL 1 cap PO DAILY 06/22/15 03/09/21 [Lotrel 5-10 MG] Glucosamine Sulfate 1,500 mg PO DAILY 08/26/17 03/09/21 Ascorbic Acid [Vitamin C] 1,000 mg PO DAILY 03/09/21 03/09/21 Cholecalciferol [Vitamin D3 (25 200 mcg PO DAILY 03/09/21 03/09/21 Mcg = 1000 Iu)] Previous Rx's Medication Instructions Recorded Apixaban [Eliquis Starter Pack 5 - 10 mg PO DIRECTED 30 Days 03/12/21 (for VTE)] #1 each hydrALAZINE HCL [Apresoline] 25 mg PO DAILY #30 tab 03/12/21 Allergies Allergy/AdvReac Type Severity Reaction Status Date / Time Sulfa (Sulfonamide Allergy Anaphylaxis Verified 03/30/21 07:34 Antibiotics) Review of Systems ROS Statement: Those systems with pertinent positive or pertinent negative responses have been documented in the HPI. ROS Other: All systems not noted in ROS Statement are negative. 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 She was found to have an irregular endometrium by ultrasound in 2017. History of Any Multi-Drug Resistant Organisms: None Reported Past Surgical History: Appendectomy, Back Surgery, Hernia Repair, Hysterectomy, Joint Replacement, Orthopedic Surgery, Tonsillectomy Additional Past Surgical History / Comment(s): 06/26/15 total R knee arthroplasty. Other surgical hx: orif rt ankle, rt elbow replacement, bilat cataracts, colonoscopy 2006, Past Anesthesia/Blood Transfusion Reactions: Previous Problems w/ Anesthesia, Motion Sickness, Postoperative Nausea & Vomiting (PONV) Past Psychological History: No Psychological Hx Reported Past Alcohol Use History: None Reported Past Drug Use History: None Reported - Past Family History Mother Family Medical History: Coronary Artery Disease (CAD), Myocardial Infarction (NM) Additional Family Medical History / Comment(s): Mother at age 83 yrs of heart problem. Father Family Medical History: Coronary Artery Disease (CAD) Additional Family Medical History / Comment(s): Father in a MVA at the age of 55 yrs. General Exam Limitations: no limitations General appearance: alert, in no apparent distress Head exam: Present: atraumatic Eye exam: Present: normal appearance, PERRL, EOMI. Absent: scleral icterus, conjunctival injection ENT exam: Present: normal exam, mucous membranes moist Neck exam: Present: normal inspection, full ROM. Absent: tenderness Respiratory exam: Present: normal lung sounds bilaterally. Absent: respiratory distress, wheezes Cardiovascular Exam: Present: regular rate, normal rhythm, normal heart sounds GI/Abdominal exam: Present: soft, normal bowel sounds. Absent: distended, tenderness Course Vital Signs 03/30/21 03/30/21 07:30 08:00 Temperature 98.9 F Pulse Rate 89 89 Respiratory 18 14 Rate Blood Pressure 182/93 161/80 O2 Sat by Pulse 98 96 Oximetry EKG Findings - EKG Comments: EKG Findings:: Normal sinus rhythm, ventricular rate 89, OK interval 144, QTc 469 Medical Decision Making - Medical Decision Making She presents hypertensive with a blood pressure 182/93. This did improve to 161/80. Patient feeling much better. EKG is nonischemic. CBC and CMP is unremarkable. Urinalysis is negative. X-ray shows no evidence for acute pulmonary disease. At this time patient can be discharged home in stable condition to follow up with her doctor. Discussed keeping a blood pressure log of her doctor and following up. She will return here for any worsening symptoms. - Lab Data Result diagrams: 03/30/21 07:49 03/30/21 07:49 Lab Results 03/30/21 03/30/21 03/30/21 Range/Units 07:49 07:49 07:49 WBC 7.1 (3.8-10.6) k/uL RBC 4.67 (3.80-5.40) m/uL Hgb 13.2 (11.4-16.0) gm/dL Hct 41.5 (34.0-46.0) % MCV 88.8 (80.0-100.0) fL MCH 28.2 (25.0-35.0) pg MCHC 31.8 (31.0-37.0) g/dL RDW 13.8 (11.5-15.5) % Plt Count 250 (150-450) k/uL MPV 8.6 Neutrophils % 77 % Lymphocytes % 15 % Monocytes % 5 % Eosinophils % 2 % Basophils % 0 % Neutrophils # 5.5 (1.3-7.7) k/uL Lymphocytes # 1.1 (1.0-4.8) k/uL Monocytes # 0.3 (0-1.0) k/uL Eosinophils # 0.1 (0-0.7) k/uL Basophils # 0.0 (0-0.2) k/uL Sodium 140 (137-145) mmol/L Potassium 4.1 (3.5-5.1) mmol/L Chloride 108 H (98-107) mmol/L Carbon Dioxide 23 (22-30) mmol/L Anion Gap 9 mmol/L BUN 9 (7-17) mg/dL Creatinine 0.77 (0.52-1.04) mg/dL Est GFR (CKD-EPI)AfAm 86 (>60 ml/min/1.73 sqM) Est GFR (CKD-EPI)NonAf 75 (>60 ml/min/1.73 sqM) Glucose 119 H (74-99) mg/dL Calcium 10.0 (8.4-10.2) mg/dL Total Bilirubin 0.7 (0.2-1.3) mg/dL AST 22 (14-36) U/L ALT 16 (4-34) U/L Alkaline Phosphatase 121 (38-126) U/L Total Protein 7.4 (6.3-8.2) g/dL Albumin 4.1 (3.5-5.0) g/dL Urine Color Colorless Urine Appearance Clear (Clear) Urine pH 7.5 (5.0-8.0) Ur Specific [place] 1.006 (1.001-1.035) Urine Protein Negative (Negative) Urine Glucose (UA) Negative (Negative) Urine Ketones Negative (Negative) Urine Blood Negative (Negative) Urine Nitrite Negative (Negative) Urine Bilirubin Negative (Negative) Urine Urobilinogen <2.0 (<2.0) mg/dL Ur Leukocyte Esterase Negative (Negative) Disposition Clinical Impression: Hypertension Disposition: HOME SELF-CARE Condition: Good Instructions (If sedation given, give patient instructions): Hypertension (ED) Additional Instructions: Please take your medications as directed. If your blood pressure at night is 170/90 or higher and you are having symptoms you can take half pill of your hydralazine as long as you have not taken any other blood pressure medications in the last 2 hours. Keep a blood pressure log. Take it to your doctor as soon as you can schedule an appointment. Return to the emergency room for any worsening symptoms. Is patient prescribed a controlled substance at d/c from ED?: No Referrals: Gabriella Leija MD [Primary Care Provider] - 1-2 days Time of Disposition: 08:52
[2021-03-30 08:18] LABS: Appearance,Urine Clear (Clear); Bilirubin,Urine Negative (Negative); Blood,Urine Negative (Negative); Color,Urine Colorless; Glucose,Urine (UA) Negative (Negative); Ketones,Urine Negative (Negative); Leukocyte Esterase,Urine Negative (Negative); Nitrite,Urine Negative (Negative); PH, Urine 7.5 (5.0-8.0); Protein,Urine Negative (Negative); Specific Gravity,Urine 1.006 (1.001-1.035); Urobilinogen,Urine <2.0 mg/dL (<2.0)
[2021-03-30 08:21] LABS: Albumin 4.1 g/dL (3.5-5.0); Potassium 4.1 mmol/L (3.5-5.1); Total Bilirubin 0.7 mg/dL (0.2-1.3); Total Protein 7.4 g/dL (6.3-8.2)
--- NOTE | 2021-03-30 08:24 | XR ---
EXAMINATION TYPE: XR chest 2V DATE OF EXAM: 03/30/2021 COMPARISON: 03/09/2021 HISTORY: Shortness of breath TECHNIQUE: Frontal and lateral views of the chest are obtained. FINDINGS: Scattered senescent parenchymal changes noted. Hyperinflation compatible with COPD. No evidence for infiltrate. No evidence for atelectasis. Heart size is stable. Mediastinal structures are stable and grossly unremarkable. No evidence for hilar prominence. Degenerative changes dorsal spine. IMPRESSION: 1. No evidence for acute pulmonary disease.
[2021-03-30 08:58] VITALS: BP 157/85; PULSE 90; RESP 17
== END 2021-03-30 09:11 | disposition home or self-care (01) ==
LOC: EC 07:08
DX: I10 Essential (primary) hypertension (principal); E78.5 Hyperlipidemia, unspecified; M19.90 Unspecified osteoarthritis, unspecified site; Z79.899 Other long term (current) drug therapy; Z79.890 Hormone replacement therapy
CPT/HCPCS: 36415; 71046; 80053; 81003; 85025; 93005; 96360; 99284